=== PATIENT | male | born 1960 ===

== ENCOUNTER 2022-11-25 14:24 | Emergency (ER) | payer MEDICAID ==
[~2022-11-25] VITALS: Ht 188 cm; Wt 68.0 kg
[2022-11-25 20:30] VITALS: BP 129/73
== END 2022-11-25 20:22 | disposition home or self-care (01) ==
LOC: ER 14:24
DX: T50.7X1A Poisoning by analeptics and opioid receptor antagonists, accidental (unintentional), initial encounter (principal); Y92.89 Other specified places as the place of occurrence of the external cause
CPT/HCPCS: 99283